=== PATIENT | female | born 1945 | race Caucasian/White ===

== ENCOUNTER → 2023-05-04 | Outpatient (CLI) | payer MEDICARE ==
--- NOTE | 2023-05-09 09:49 | PE ---
EXAMINATION TYPE: PET CT fusion skull to thigh DATE OF EXAM: 05/04/2023 COMPARISON: No prior imaging at this location. Prior PET/CT: No prior imaging at this location. HISTORY: Head and neck malignancy TECHNIQUE: Following the intravenous administration of 12.73 mCi of F-18 FDG, whole body images are performed from the skull base to the midthigh. Images are reviewed on the computer in the coronal, a xial, and sagittal planes. Reconstructed rotating images are created on independent workstation and reviewed on the computer. A localization and attenuation correction CT is performed in conjunction with the PET scan. DLP: 482.84 mGycm SCAN: Initial Blood glucose: 88 mg/dL Average Mediastinum SUV: 1.74 Average Liver SUV: 2.27 FINDINGS: HEAD and NECK: There is marked uptake within the tongue region, example image 42 SUV 14.79. This appe ars to begin within the more central tongue superiorly and extends down the right tongue region to ne santo the level of the hypopharynx. NECK: Additional abnormal uptake is not identified within the neck. Some mild inflammatory change ma y be within the right upper cervical spine THORAX: No abnormal uptake. ABDOMEN: No abnormal uptake PELVIS: No abnormal uptake. OSSEOUS STRUCTURES: There is some degenerative changes at the bilateral hips. Inflammatory degenerat nadine changes at the bilateral shoulders is present. LOCALIZATION CT: Diverticulosis without acute diverticulitis is evident. Facet degenerative changes a re present. Small pericardial effusion is present. COMPARISON: No prior studies IMPRESSION: 1. Increased uptake within the tongue extends inferiorly along the right aspect of the tongue. 2. No suspicious metastatic foci identified
== END | disposition home or self-care (01) ==
LOC: LABWHC1 09:37
DX: C06.89 Malignant neoplasm of overlapping sites of other parts of mouth (principal); R93.89 Abnormal findings on diagnostic imaging of other specified body structures
CPT/HCPCS: 78815; A9552